=== PATIENT | male | born 2000 | race Two or more races ===

== ENCOUNTER 2025-03-21 12:42 | Emergency (ER) | payer SELFPAY ==
[~2025-03-21] VITALS: Ht 167.6 cm; Wt 100.0 kg
[2025-03-21 12:43] VITALS: BP 128/82; PULSE 104; RESP 18; TEMP 98.4; O2SAT 95
== END 2025-03-21 16:06 | disposition left against medical advice (07) ==
LOC: ER 12:42
DX: S81.812A Laceration without foreign body, left lower leg, initial encounter (principal); Z53.21 Procedure and treatment not carried out due to patient leaving prior to being seen by health care provider; X58.XXXA Exposure to other specified factors, initial encounter; Y93.89 Activity, other specified; Y92.89 Other specified places as the place of occurrence of the external cause; Y99.8 Other external cause status